=== PATIENT | male | born 1960 | race Caucasian/White ===

== ENCOUNTER 2017-06-02 11:50 | Emergency (ER) | payer OTHER ==
--- NOTE | 2017-06-02 12:17 | EDPHY ---
H & P Stated Complaint: laceration left hand Time Seen by Provider: 06/02/17 12:11 HPI/ROS: CHIEF COMPLAINT: Laceration HISTORY OF PRESENT ILLNESS: Patient is a 56-year-old man who was using a put a knife to scraped we actually cut his left hand. He has a laceration to the thenar eminence of the left hand. It is bleeding. Normal sensation and range of motion and strength distally. No visible involvement of the tendons nerves or arteries of the wrist. REVIEW OF SYSTEMS: Constitutional: denies: chills, fever, recent illness, recent injury EENTM: denies: blurred vision, double vision, nose congestion Respiratory: denies: cough, shortness of breath Cardiac: denies: chest pain, irregular heart rate, lightheadedness, palpitations Gastrointestinal/Abdominal: denies: abdominal pain, diarrhea, nausea, vomiting, blood streaked stools Genitourinary: denies: dysuria, frequency, hematuria, pain Musculoskeletal: denies: joint pain, muscle pain Skin: See HPI Neurological: denies: headache, numbness, paresthesia, tingling, dizziness, weakness Hematologic/Lymphatic: denies: blood clots, easy bleeding, easy bruising Immunologic/allergic: denies: HIV/AIDS, transplant EXAM: GENERAL: Well-appearing, well-nourished and in no acute distress. HEAD: Atraumatic, normocephalic. EYES: Pupils equal round and reactive to light, extraocular movements intact, sclera anicteric, conjunctiva are normal. ENT: TMs normal, nares patent, oropharynx clear without exudates. Moist mucous membranes. NECK: Normal range of motion, supple without lymphadenopathy or JVD. LUNGS: Breath sounds clear to auscultation bilaterally and equal. No wheezes rales or rhonchi. HEART: Regular rate and rhythm without murmurs, rubs or gallops. ABDOMEN: Soft, nontender, normoactive bowel sounds. No guarding, no rebound. No masses appreciated. BACK: No CVA tenderness, no spinal tenderness, step-offs or deformities EXTREMITIES: Normal range of motion, no pitting or edema. No clubbing or cyanosis. NEUROLOGICAL: Cranial nerves II through XII grossly intact. Normal speech, normal gait. 5/5 strength, normal movement in all extremities, normal sensation PSYCH: Normal mood, normal affect. SKIN: 4 cm long, 1-2 cm deep laceration over the left thenar eminence. Muscle belly involved. No obvious tendon nerve or arterial injury. Linear Source: Patient - Personal History Current Tetanus Diphtheria and Acellular Pertussis (TDAP): Yes - Medical/Surgical History Hx Asthma: No Hx Chronic Respiratory Disease: No Hx Diabetes: No Hx Cardiac Disease: No Hx Renal Disease: No Hx Cirrhosis: No Hx Alcoholism: No Hx HIV/AIDS: No Hx Splenectomy or Spleen Trauma: No Other PMH: none - Family History Significant Family History: No pertinent family hx - Social History Smoking Status: Never smoked Constitutional: Initial Vital Signs Temperature (C) 36.6 C 06/02/17 11:54 Heart Rate 71 06/02/17 11:54 Respiratory Rate 16 06/02/17 11:54 O2 Sat (%) 97 06/02/17 11:54 O2 Delivery Mode Room Air Allergies/Adverse Reactions: No Known Allergies Allergy (Unverified 06/02/17 11:58) Home Medications: Medication Instructions Recorded NK [No Known Home Meds] 06/02/17 Medical Decision Making Procedures: Procedure: Laceration repair. Verbal consent was obtained from the patient. The 4 cm left hand laceration was anesthetized with 1% lidocaine with epi and bicarbonate locally infiltrated. The wound was irrigated copiously according to protocol, draped and explored to its base. It was approximately 1-2 cm deep. There was muscle belly involvement but no obvious vein nerve or tendon injury. No tendon, nerve , or vascular injury was identified when explored through full range of motion. No foreign body was identified. The wound was repaired with 24.0 Vicryl sutures deep and then 125.0 Prolene sutures on the skin, interrupted. The wound repair was complex with multiple layer closure. The procedure was performed by myself. A dressing was then placed with sterile gauze and bacitracin. ED Course/Re-evaluation: The patient tolerated the procedure well. He is grateful. We discussed suture care and removal. We discussed indications for returning. His wound was bandaged. Differential Diagnosis: Partial list of the Differential diagnosis considered include but were not limited to; laceration, vascular injury and although unlikely based on the history and physical exam, I also considered nerve injury, tendon injury, arterial injury, foreign body. I discussed these differential diagnoses and the plan with the patient as well as the usual and expected course. The patient understands that the diagnosis is provisional and that in medicine we are not always correct and that further workup is often warranted. Usual and customary warnings were given. All of the patient's questions were answered. The patient was instructed to return to the emergency department should the symptoms at all worsen or return, otherwise to followup with the physician as we discussed. Departure - Departure Disposition: Home, Routine, Self-Care Clinical Impression: Laceration Condition: Good Instructions: Care For Your Stitches (ED), Laceration (ED) Additional Instructions: Return to have your stitches removed in 10 days Referrals: Victoria Guy MD [Primary Care Provider] - As per Instructions
== END 2017-06-02 12:53 | disposition home or self-care (01) ==
LOC: CED 11:50
PROC: 0JQK3ZZ Repair Left Hand Subcutaneous Tissue and Fascia, Percutaneous Approach (ICD-10-PCS; principal; 2017-06-02)
DX: S61.412A Laceration without foreign body of left hand, initial encounter (principal); W26.0XXA Contact with knife, initial encounter